=== PATIENT | male | born 2000 | race Caucasian/White ===

== ENCOUNTER 2021-04-22 13:07 | Emergency (ER) | payer SELFPAY ==
[2021-04-22 13:27] VITALS: BP 131/83; PULSE 77; TEMP 98.4; BMI 29.4
[2021-04-22] MEDS ORDERED: IBUPROFEN 600 MG TABLET (FP) PO ONE ×2 (13:49→14:03)
== END 2021-04-22 16:01 | disposition home or self-care (01) ==
LOC: JER 13:07
DX: B34.9 Viral infection, unspecified (principal)
CPT/HCPCS: 87804; 93005; 93010; 99284-25; C9803; U0003; U0005